=== PATIENT | male | born 1975 | race Caucasian/White ===

== ENCOUNTER 2023-02-09 04:57 | Day surgery (SDC) | payer OTHER ==
[2023-02-08 09:43] VITALS: BMI 26.4
[2023-02-09 08:15] VITALS: TEMP 98.2
[2023-02-09 08:26] VITALS: PULSE 77; RESP 17
[2023-02-09 08:43] VITALS: BP 129/83
== END 2023-02-09 08:58 | disposition home or self-care (01) ==
LOC: JASU-ENDO 04:57
PROVIDERS: ATTEND Student in an Organized Health Care Education/Training Program
PROC: 0DBP8ZX Excision of Rectum, Via Natural or Artificial Opening Endoscopic, Diagnostic (ICD-10-PCS; principal; 2023-02-09 07:30)
DX: Z12.11 Encounter for screening for malignant neoplasm of colon (principal); D12.8 Benign neoplasm of rectum
CPT/HCPCS: 88305-TC